=== PATIENT | male | born 1980 | race Caucasian/White ===

== ENCOUNTER 2018-10-17 21:04 | Emergency (ER) | payer OTHER ==
[~2018-10-17] VITALS: Ht 185.4 cm; Wt 93.0 kg
[2018-10-17 21:11] VITALS: BP 140/80
--- NOTE | 2018-10-17 21:11 | NUR ---
TO BED # 11 AMBULATORY
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
[2018-10-17] MEDS ORDERED: KETOROLAC 60 MG/2 ML VIAL IM ONE (21:45)
[2018-10-17 22:10] VITALS: BP 136/85
--- NOTE | 2018-10-17 22:10 | NUR ---
Note denniswalt in EDM - 10/17/18 at 2219 by [email or web address] Patient discharged with v/s stable. Written and verbal after care instructions given and explained. Patient alert, oriented and verbalized understanding of instructions. Ambulatory with steady gait. All questions addressed prior to discharge. ID band removed. Patient advised to follow up with PMD. Rx of TRAMADOL AND IBUPROFEN given. Patient educated on indication of medication including possible reaction and side effects. Opportunity to ask questions provided and answered.
--- NOTE | 2018-10-17 22:18 | NUR ---
Patient discharged with v/s stable. Written and verbal after care instructions given and explained. Patient alert, oriented and verbalized understanding of instructions. Ambulatory with steady gait. All questions addressed prior to discharge. ID band removed. Patient advised to follow up with PMD. Rx of TRAMADOL AND IBUPROFEN given. Patient educated on indication of medication including possible reaction and side effects. Opportunity to ask questions provided and answered.
== END 2018-10-17 22:18 | disposition home or self-care (01) ==
LOC: MED 21:04
DX: S42.021A Displaced fracture of shaft of right clavicle, initial encounter for closed fracture (principal); V89.2XXA Person injured in unspecified motor-vehicle accident, traffic, initial encounter; Y93.89 Activity, other specified; Y92.410 Unspecified street and highway as the place of occurrence of the external cause; Y99.8 Other external cause status
CPT/HCPCS: 73000; 73030; 96372; 99283; J1885